=== PATIENT | female | born 1945 | race Caucasian/White ===

== ENCOUNTER 2020-01-10 08:17 | Day surgery (SDC) | payer OTHER, BC ==
[2020-01-03 16:20] VITALS: BMI 23.8
[2020-01-10 08:55] VITALS: TEMP 98.1
[2020-01-10] MEDS ORDERED: oxyCODONE HCL 5 MG TABLET PO PRN (11:04)
[2020-01-10] MEDS ORDERED: MIDAZOLAM HCL 2 MG/2 ML SINGLE DOSE VIAL ONE (11:29)
[2020-01-10] MEDS ORDERED: PROPOFOL 20 ML ONE (11:30)
[2020-01-10] MEDS ORDERED: ONDANSETRON 4 MG/2 ML VIAL ONE (11:35)
[2020-01-10] MEDS ORDERED: DEXAMETHASONE SOD PHOSPHATE 4 MG/1 ML VIAL ONE (11:35)
[2020-01-10 12:41] VITALS: BP 118/78; PULSE 77
--- NOTE | 2020-01-11 13:49 | OP ---
DATE OF OPERATION: 01/10/2020 PREOPERATIVE DIAGNOSIS: Right long trigger finger. POSTOPERATIVE DIAGNOSIS: Right long trigger finger. OPERATIVE PROCEDURE: Right long trigger finger release. SURGEON: Erasto Pereira MD ANESTHESIA: Local with sedation. COMPLICATIONS: None. ESTIMATED BLOOD LOSS: Minimal. INDICATIONS FOR PROCEDURE: The patient is a 74-year-old female with the above finding, indicated for operative treatment. Risks, benefits, and alternatives were discussed with patient at length. Proper informed consent was obtained. DESCRIPTION OF PROCEDURE: After proper identification of patient and correct operative site, patient brought to the operating room and placed supine on the operating room table with all prominences well padded. Sedation and local anesthesia were given. Right upper extremity was prepped and draped in the usual sterile fashion. A well-padded tourniquet was placed with a sterile prep. Esmarch bandage used to exsanguinate right upper extremity. Tourniquet was inflated to 250 mmHg. A longitudinal incision was made over the A1 alf to the long finger. Incision was taken sharply through skin with blunt and sharp dissection through subcutaneous tissues. A1 alf was identified and divided. Patient was asked to flex and extend the finger and no further triggering was noted. The wound was irrigated and repaired with 5-0 fast-absorbing plain-gut suture. Sterile dressings were applied. Patient brought to recovery room in stable condition. She tolerated procedure well. ERASTO PEREIRA M.D. [facility]/[id number]
== END 2020-01-10 12:45 | disposition home or self-care (01) ==
LOC: FASU 08:17
PROVIDERS: ATTEND Orthopaedic Surgery Hand Surgery
PROC: 0LN70ZZ Release Right Hand Tendon, Open Approach (ICD-10-PCS; principal; 2020-01-10 10:15)
DX: M65.331 Trigger finger, right middle finger (principal)